=== PATIENT | male | born 1975 | race Two or more races ===

== ENCOUNTER 2024-12-13 02:14 | Day surgery (SDC) | payer OTHER, SELFPAY ==
[2024-12-03 15:55] VITALS: BMI 33.4
[2024-12-13 13:52] VITALS: BP 183/92; PULSE 63; RESP 18; TEMP 36.1; O2SAT 100
--- NOTE | 2024-12-13 14:02 | WPDANESEPPF ---
Anes - Initial Pre Proc Eval Procedure: Operation Date: 12/13/24 14:30 Proposed Procedures p Screening Colonoscopy - Bertin Thompson MD Date/Time: 12/13/24 14:02 Surgeon: Bertin Thompson MD Pre Op Diagnosis: Screening Patient Data Age: 49 Gender: M Height: 1.73 m Weight: 93.2 kg Last Vital Signs Temp 36.1 C L 12/13/24 13:52 Pulse 63 12/13/24 13:52 Resp 18 12/13/24 13:52 BP 183/92 H 12/13/24 13:52 Pulse Ox 100 12/13/24 13:52 O2 Del Method Room Air 12/13/24 13:52 Allergies Allergy/AdvReac Type Severity Reaction Status Date / Time No Known Allergies Allergy Verified 12/13/24 13:51 Home Medications ?Medication ?Instructions ?Recorded ?Confirmed ?Type lisinopril 20 mg tablet 20 mg PO DAILY 12/03/24 12/13/24 History Patient hx anesthesia problems: none Family hx anesthesia problems: none Results Review: All pre-operative results and documents have been reviewed as part of the pre-operative evaluation. FOR[facility]LY [facility], [facility] Social History Social History Smoking status: Never smoker Alcohol intake: never Substance use: never Substance use type: does not use Living arrangements: with family Spiritual care concerns: No Anes - Eval Final PreProcedure Day of Procedure 12/13/24 14:02 Patient weight: obese Heart: regular rate and rhythm Lungs: clear to auscultation Airway: Mallampati scale class II Neurological: alert and oriented Last oral intake: >/= 8 hours ASA classification: II Emergent: no Anesthetic plan: proceed Anesthesia type and monitoring: general GIVS and standard monitoring Results Review: All pre-operative results and documents have been reviewed as part of the pre-operative evaluation. Informed Consent: The patient's anesthetic plan and its attendant risks and benefits were discussed with the patient/family/POA. Questions were solicited and answers provided to the satisfaction of the patient/family/POA.
[2024-12-13] MEDS: LACTATED RINGERS 1,000 ML 150 ML IV CONT (14:03)
--- NOTE | 2024-12-13 14:49 | PM.HPGS ---
History of Present Illness History of Present Illness Consent: Risks, benefits, and alternatives have been discussed and questions answered. Patient agrees to proceed with procedure. Chief complaint: Screening Narrative: Christiano Truong is a 49 year old male here for first screening colonoscopy Review of Systems Review of Systems: All systems reviewed & are unremarkable except as noted in HPI and below PMFSH Past Medical History Medical History (Updated 12/13/24 @ 14:49 by Bertin Thompson MD) Colon cancer screening Social History Social History Smoking status: Never smoker Alcohol intake: never Substance use: never Substance use type: does not use Living arrangements: with family Spiritual care concerns: No Meds Home Medications and Allergies Home Medications ?Medication ?Instructions ?Recorded ?Confirmed ?Type lisinopril 20 mg tablet 20 mg PO DAILY 12/03/24 12/13/24 History Allergies Allergy/AdvReac Type Severity Reaction Status Date / Time No Known Allergies Allergy Verified 12/13/24 13:51 Vital Signs Vital Signs - 24 hr 12/13/24 13:52 Temperature 97 F L Pulse Rate 63 Respiratory Rate 18 Blood Pressure 183/92 H Pulse Oximetry 100 Oxygen Delivery Room Air Exam Const: General: comfortable and no acute distress HENMT: Face/Nose/Sinus: Normal nares present Eyes: General: appearance normal, both eyes and all related structures Neck: Neck: no JVD Resp: Auscultation: clear to auscultation bilaterally Cardio: Rate: regular rate Rhythm: regular rhythm GI: Inspection: non-distended GI Palp: Yes Soft to palpation Skin: General skin exam: normal color Neuro: General: gait normal Speech: normal speech Extrem: General: normal to inspection Psych: Mental Status: mental status grossly normal Assessment and Plan Assessment and plan (1) Colon cancer screening: Code(s): Z12.11 - Encounter for screening for malignant neoplasm of colon Status: Acute Assessment and Plan: colonoscopy
[2024-12-13 15:04] VITALS: BP 118/69; PULSE 60; RESP 20; O2SAT 97
[2024-12-13 15:14] VITALS: BP 135/90; PULSE 61; RESP 17; O2SAT 97
[2024-12-13 15:24] VITALS: BP 158/87; PULSE 60; RESP 20; O2SAT 97
--- NOTE | 2024-12-13 15:30 | SUR.PHASEII ---
notified of patients occasional heart rate in 60's then drops to 40's. Pt is not symptomatic and stated no when asked if he has any chest pain or SOB. is okay for patient to be discharged. Patient is educated to contact physicians number if he has any questions of concerns.
== END 2024-12-13 15:40 | disposition home or self-care (01) ==
PROVIDERS: PCP Emergency Medicine; Referring Provider Emergency Medicine; Visit Provider Internal Medicine Gastroenterology
PROC: 0DJD8ZZ Inspection of Lower Intestinal Tract, Via Natural or Artificial Opening Endoscopic (ICD-10-PCS; CPT 45378; principal; 2024-12-13 14:30)
DX: Z12.11 Encounter for screening for malignant neoplasm of colon (principal); K57.30 Diverticulosis of large intestine without perforation or abscess without bleeding; E66.9 Obesity, unspecified; Z68.31 Body mass index [BMI] 31.0-31.9, adult
CPT/HCPCS: 45378; J2003; J2704; J7120